=== PATIENT | male | born 1960 | race Caucasian/White ===

== ENCOUNTER → 2017-12-31 | Outpatient (CLI) | payer BC | LOC: CARDLAB 08:02 → CARDREHAB 09:43 → CARDLAB 14:38 | DX: I25.2 Old myocardial infarction (principal) | CPT/HCPCS: A9500 ==

== ENCOUNTER → 2018-07-22 | Outpatient (CLI) | payer BC ==
[2018-07-22 13:03] LABS: HEMATOCRIT 50.7 % (42.0-52.0); HEMOGLOBIN 16.8 g/dL (13.5-18.0)
== END ==
LOC: LAB 12:52
PROVIDERS: Internal Medicine Medical Oncology
DX: D75.1 Secondary polycythemia (principal)

== ENCOUNTER → 2022-09-28 | Outpatient (CLI) | payer BC | LOC: RAD 15:39 | DX: Z01.818 Encounter for other preprocedural examination (principal) ==